=== PATIENT | female | born 1995 | race Caucasian/White ===

== ENCOUNTER 2019-05-03 07:12 | Emergency (ER) | payer SELFPAY ==
[~2019-05-03] VITALS: Ht 160 cm; Wt 63.9 kg
[~2019-05-03 07:12] MED LIST: AMIT50TA; BIRTH CONTROL PILL; CITA20TA9 PO; LORA-446 PO
[2019-05-03] MEDS ORDERED: DIAZ10TA4 PO (07:47)
--- NOTE | 2019-05-03 07:49 | NUR ---
PT ARRIVED AMBULATORY TO ROOM 21 WITH DAD. PT C/O RASH ON FACE WITH ASSOCIATED CHEST AND THROAT TIGHTNESS. PT STEADY GAIT, AAO X 4, DRESSED IN GOWN, VSS. PT RESTING COMFORTABLY ON GURNEY, CALL LIGHT AND BELONGINGS WITHIN REACH.
[2019-05-03] MEDS ORDERED: DEXAMETHASONE 4 MG TABLET ONE (07:52)
[2019-05-03] MEDS ORDERED: DIPHENHYDRAMINE 25 MG CAPSULE ONE (07:52)
[2019-05-03] MEDS ORDERED: DEXAMETHASONE 4 MG TABLET PO ONE (08:00)
[2019-05-03] MEDS ORDERED: DIPHENHYDRAMINE 25 MG CAPSULE PO ONE (08:00)
[2019-05-03 08:39] VITALS: BP 120/98
--- NOTE | 2019-05-03 08:40 | NUR ---
Patient/Caregiver given discharge instructions and they have confirmed that they understand the instructions. Patient ambulatory with steady gait.
== END 2019-05-03 08:55 | disposition home or self-care (01) ==
LOC: ED 08:47
DX: L53.9 Erythematous condition, unspecified (principal); R07.89 Other chest pain; L50.9 Urticaria, unspecified
CPT/HCPCS: 93005; 99283; Q0163